=== PATIENT | male | born 1945 | race Caucasian/White ===

== ENCOUNTER → 2023-09-14 11:07 | Outpatient (REF) | payer MEDICARE, SELFPAY | LOC: HWRAD 11:07 | PROVIDERS: ATTENDING PHYSICIAN Family Medicine | DX: M16.0 Bilateral primary osteoarthritis of hip (principal) | CPT/HCPCS: 73523 ==

== ENCOUNTER 2024-02-10 10:43 | Emergency (ER) | payer MEDICARE, SELFPAY ==
[2024-02-10 10:54] VITALS: BP 167/79
[2024-02-10 12:17] VITALS: BP 128/63
--- NOTE | 2024-02-10 14:19 | ED.GENMED ---
History of Present Illness
General
Chief Complaint: Skin Problem
Time Seen by Provider: 02/10/24 12:18
History of Present Illness
History of Present Illness:
78-year-old male presents to the emergency department for evaluation of swelling, redness, and pain to the left lower extremity. Denies any open wounds or trauma. Symptoms been ongoing for the past 5 to 6 days. No fevers or chills.
Past History
Past History
ED Past Medical History: HTN, Hypercholesterolemia, NIDDM and Other (Chronic back pain, sleep apnea)
ED Past Surgical History: Orthopedic
Social History
Tobacco: Non-smoker
Living: with family
Family History
Family History: Diabetes
Review of Systems
Review of Systems
Allergies reviewed?: Yes
All Other Systems: ROS reviewed and negative except as documented in HPI and ROS
Phy Exam
Physical Exam
Physical Exam:
GEN: Well appearing, NAD, WDWN
HEENT: Oral mucosa moist, no scleral icterus
Cardiac: Regular rate
Lung: No respiratory distress, no tachypnea
MSK: Diffuse swelling and erythema to the left lower extremity, no obvious open wounds, calf compartments are soft and there is no pain with passive stretch
Skin: Good color, no pallor or jaundice, no rashes
Neuro: AO x3, moves all extremities freely
Psych: Calm, cooperative
Course
Orders/Labs/Results
Orders:
Orders
02/10/24 12:29
Venous Doppler Lwr Ext Left [US Periph Venous LOWER Ext LT] Urgent
Comment:
Reason For Exam: LLE edema
Vital Signs
Initial and Last Documented VS:
Initial Vital Signs
Temp Pulse Resp BP Pulse Ox
98.6 F 80 18 167/79 97
02/10/24 10:54 02/10/24 10:54 02/10/24 10:54 02/10/24 10:54 02/10/24 10:54
Last Documented Vital Signs
Temp Pulse Resp BP Pulse Ox
98.6 F 71 19 128/63 97
02/10/24 10:54 02/10/24 12:21 02/10/24 12:21 02/10/24 12:17 02/10/24 10:54
MDM/Problems Addressed
MDM/Problems Addressed:
Ultrasound reveals greater saphenous vein thrombophlebitis which is likely secondary to the associated cellulitis. Will treat this with full dose aspirin oral antibiotics. Educated patient on supportive care and return parameters
*Critical Care Note
Total Time (30-74mins, 75-104mins- exclusive of procedures): Not Applicable
ED Attending Note
-
Portions of this chart may have been created with voice recognition software.� Occasional wrong word or��sound alike� substitutions may have occurred due to the inherent limitations of voice recognition software.
Discharge Plan
Departure
Patient Disposition: Home (Routine Discharge)
Date of Disposition: 02/10/24
Time of Disposition: 14:19
Patient with high blood pressure during this ER visit?: No
Discharge Problem:
Superficial thrombophlebitis of left leg, Cellulitis
Instructions: Superficial vein phlebitis and thrombosis, Cellulitis (Skin Infection), Adult ED
Prescriptions:
New
cephalexin 500 mg capsule
500 mg PO Q8H 7 Days Qty: 21 0RF
aspirin 325 mg tablet
325 mg PO DAILY Qty: 14 0RF
No Action
etodolac 400 MG tablet extended release
400 mg PO BID
metformin 1,000 MG tablet
1,000 mg PO BID
cholecalciferol (vitamin D3) 1,000 UNIT tablet
1,000 unit PO BID
atorvastatin 10 MG tablet
10 mg PO DAILY
Tribenzor
1 tab PO DAILY
Patient Comments:
Pt takes 10-12.5-40
cyanocobalamin (vitamin B-12) 100 MCG tablet
100 mcg PO DAILY
bimatoprost [Lumigan] 1 DROP drops
1 drp BOTH EYES HS
gabapentin 400 MG capsule
400 mg PO TID
acetaminophen 325 MG tablet
650 mg PO QID Qty: 0 0RF
polyethylene glycol 3350 17 GRAMS powder in packet
17 grams PO DAILY Qty: 0 0RF
aspirin 325 MG tablet,delayed release (DR/EC)
325 mg PO DAILY Qty: 0 0RF
oxycodone 5 MG tablet
5 mg PO Q4HPRN PRN (Reason: moderate to severe pain) Qty: 90 0RF
Rx Instructions:
1 to 2 tabs every 4 hours as needed
oxycodone 10 MG tablet
10 mg PO Q4HPRN PRN (Reason: moderate pain) Qty: 0 0RF
Referrals:
Brock Tristan, [Family Provider] -
Activity Restrictions/Additional Instructions:
Stop your baby aspirin, and begin taking full dose aspirin for the next 2 weeks
Complete the antibiotics
If your swelling does not improve, your primary physician should send you for a repeat ultrasound in 2 weeks
Interventions
Interventions:
*Risk Screen - Suicide Last Done: 02/10/24 10:56
*General Assessment Last Done: 02/10/24 10:56
*Neglect/Abuse Screening Last Done: 02/10/24 10:56
ED- Fall Risk Assessment Last Done: 02/10/24 14:32
*ED COVID-19 Vaccine History Last Done: 02/10/24 12:13
*Nursing Disposition Last Done: 02/10/24 14:32
ED-Skin Assessment Last Done: 02/10/24 12:13
Discharge Date and Time
Discharge Date/Time: 02/10/24 14:35
Print Language: CHILEAN
== END 2024-02-10 14:35 | disposition home or self-care (01) ==
LOC: EMR 10:43
PROVIDERS: EMERGENCY PHYSICIAN Emergency Medicine; FAMILY PHYSICIAN Family Medicine
DX: L03.116 Cellulitis of left lower limb (principal); I80.02 Phlebitis and thrombophlebitis of superficial vessels of left lower extremity; M79.605 Pain in left leg; I10 Essential (primary) hypertension; E78.00 Pure hypercholesterolemia, unspecified; E11.9 Type 2 diabetes mellitus without complications; G89.29 Other chronic pain; M54.9 Dorsalgia, unspecified; G47.30 Sleep apnea, unspecified; Z79.82 Long term (current) use of aspirin
CPT/HCPCS: 99284; 93971

== ENCOUNTER → 2024-05-16 07:56 | Outpatient (REF) | payer MEDICARE, SELFPAY | LOC: HWRAD 07:56 | PROVIDERS: ATTENDING PHYSICIAN Internal Medicine Hematology & Oncology; FAMILY PHYSICIAN Family Medicine | DX: D69.6 Thrombocytopenia, unspecified (principal) | CPT/HCPCS: 76700 ==

== ENCOUNTER → 2025-01-18 09:52 | Outpatient (REF) | payer MEDICARE, SELFPAY | LOC: HWRAD 09:52 | PROVIDERS: ATTENDING PHYSICIAN Family Medicine | DX: N28.1 Cyst of kidney, acquired (principal) | CPT/HCPCS: 76700 ==